=== PATIENT | female | born 1945 | race Caucasian/White ===

== ENCOUNTER 2018-05-20 07:43 | Day surgery (SDC) | payer MEDICARE, OTHER ==
[2018-05-20] MEDS: NS 1,000 ML IV (08:00)
[2018-05-20] MEDS ORDERED: PROPOFOL 200 MG/20 ML VIAL As Ordered ×2 (08:10)
== END 2018-05-20 09:54 | disposition home or self-care (01) ==
LOC: M OPP 07:43
DX: Z12.11 Encounter for screening for malignant neoplasm of colon (principal); K57.32 Diverticulitis of large intestine without perforation or abscess without bleeding; K57.30 Diverticulosis of large intestine without perforation or abscess without bleeding; R00.8 Other abnormalities of heart beat; I10 Essential (primary) hypertension; E78.5 Hyperlipidemia, unspecified; E11.9 Type 2 diabetes mellitus without complications; M19.90 Unspecified osteoarthritis, unspecified site; M54.5 Low back pain; G43.909 Migraine, unspecified, not intractable, without status migrainosus; Z78.0 Asymptomatic menopausal state; Z87.891 Personal history of nicotine dependence; Z88.8 Allergy status to other drugs, medicaments and biological substances; Z88.1 Allergy status to other antibiotic agents; Z91.048 Other nonmedicinal substance allergy status; Z88.5 Allergy status to narcotic agent; Z79.82 Long term (current) use of aspirin; Z79.84 Long term (current) use of oral hypoglycemic drugs; Z79.899 Other long term (current) drug therapy
CPT/HCPCS: G0121

== ENCOUNTER → 2019-05-21 | Outpatient (REF) | payer MEDICARE, OTHER ==
[~2019-05-21] MED LIST: ASPI81TA26 PO; ATEN50TA2; BLAC540C2 PO; JANU100T; LIVA4TAB; METF500T13; SUMA100T2; TYLE500T78 PO; VITA100067 PO; [UNRECOGNIZED DRUG - CODE] PO
== END ==
LOC: M LAB REF 16:34
PROVIDERS: ATTEND Physician Assistant
DX: K57.32 Diverticulitis of large intestine without perforation or abscess without bleeding (principal)

== ENCOUNTER → 2019-11-07 | Outpatient (CLI) | payer MEDICARE, OTHER ==
--- NOTE | 2019-11-08 09:41 | REP ---
CHEST PA AND LATERAL: 11/07/2019. CLINICAL HISTORY: Dyspnea, cough for a week. FINDINGS: No prior study. Lungs are well inflated. Heart is enlarged. Some mild left ventricular configuration. There is no vascular redistribution or pulmonary edema. No dense consolidation, atelectasis, or mass. No effusion or pleural thickening. The aorta is normal. Airway intact. Bony thorax without focal lesion. No free air. IMPRESSION: 1. Some mild cardiomegaly with left atrial and ventricular enlargement, but no vascular redistribution, pulmonary edema, infiltrate, effusion, or other acute finding. Electronically Signed by Vadim Causey MD 11/08/2019 10:20 A
== END ==
LOC: M WUC 14:53
PROVIDERS: ATTEND Physician Assistant
DX: R06.02 Shortness of breath (principal); I51.7 Cardiomegaly

== ENCOUNTER 2021-06-19 11:15 | Emergency (ER) | payer MEDICARE, OTHER ==
[~2021-06-19] VITALS: Ht 154.9 cm; Wt 71.2 kg
[2021-06-19] MEDS ORDERED: MELA10CA6 PO (11:28)
[2021-06-19] MEDS ORDERED: LISI2.5T2 (11:28)
[2021-06-19] MEDS ORDERED: CITA20TA6 (11:28)
[2021-06-19] MEDS ORDERED: NAPR-849 PO (11:28)
[2021-06-19 12:16] LABS: BASO % 0.5 % (0.0-1.0); EOS # 0.1 10^3/uL (0.0-0.5); EOS % 0.7 % (0.0-3.0); HEMATOCRIT 41.8 % (36.0-47.0); HEMOGLOBIN 13.7 g/dl (12.0-15.5); LYMPH # 1.6 10^3/uL (1.5-5.0); MEAN CORPUSCULAR HEMOGLOBIN 28.8 pg (27.0-33.0); MEAN CORPUSCULAR HGB CONC 32.8 g/dl (32.0-36.5); MONO # 0.5 10^3/uL (0.0-0.8); MONO % 5.1 % (2.0-8.0); NEUTROPHILS # 6.7 10^3/uL (1.5-8.5); NEUTROPHILS % 75.5 % (36.0-66.0); PLATELET COUNT, AUTOMATED 275 10^3/uL (150-450); RED BLOOD COUNT 4.75 10^6/uL (4.00-5.40); WHITE BLOOD COUNT 8.9 10^3/uL (4.0-10.0)
[2021-06-19 12:45] LABS: ALBUMIN 4.3 GM/DL (3.2-5.2); ALT/SGPT 31 U/L (12-78); BILIRUBIN,DIRECT < 0.1 MG/DL (0.0-0.2); BILIRUBIN,TOTAL 0.4 MG/DL (0.2-1.0); BLOOD UREA NITROGEN 22 MG/DL (7-18); CALCIUM LEVEL 9.8 MG/DL (8.8-10.2); CARBON DIOXIDE LEVEL 27 MEQ/L (21-32); CHLORIDE LEVEL 106 MEQ/L (98-107); CK-MB VALUE MASS 1.1 NG/ML (<3.6); CPK CREATINE PHOSPHOKINASE 80 U/L (26-192); CREATININE FOR GFR 0.92 MG/DL (0.55-1.30); GLOMERULAR FILTRATION RATE > 60.0 (>39); GLUCOSE, FASTING 119 MG/DL (70-100); LIPASE 268 U/L (73-393); MB/CK RELATIVE INDEX 1.38 (< OR =4); POTASSIUM SERUM 4.6 MEQ/L (3.5-5.1); SODIUM LEVEL 139 MEQ/L (136-145); TROPONIN I < 0.02 NG/ML (< 0.10)
--- NOTE | 2021-06-19 13:44 | REP ---
INDICATION: UPPER ABDOMINAL PAIN. COMPARISON: Biliary scan with ejection fraction 10/10/2009 TECHNIQUE: Standard right upper quadrant sonography with color imaging FINDINGS: Liver is homogeneous in echotexture without focal hepatic mass intrahepatic biliary dilatation nor adjacent ascites. There is a transverse mucosal fold within the gallbladder near its neck. No evidence of stone, sludge or pericholecystic fluid. No wall thickening. Common duct is 3 mm. There is a 5 x 4 x 3 mm anechoic focus in the body of the pancreas without internal echoes or color flow and suggesting a small cyst. No ductal dilatation, echogenic foci to suggest calcification or mass. The right kidney is 10.3 by 3.8 by 5 cm. There is no hydronephrosis. There is 1.6 x 1 cm cyst interpolar region. IMPRESSION: 1. Transverse mucosal fold in the gallbladder with no stones, sludge or wall thickening. Liver unremarkable without biliary dilatation or adjacent ascites. 2. Common duct 3 mm without dilatation or stone. 3. Pancreas shows anechoic 5 x 4 x 3 mm focus in the body. This may be followed up and assessed with the CT scheduled later today. Appearance is cystic without abnormal enhancement or calcification. 4. Simple cyst right kidney. No other finding. <Electronically signed by Vadim Causey > 06/19/21 [id number]
[2021-06-19] MEDS ORDERED: ISOVUE-370 76% 100ML VIAL As Ordered ONE (13:50)
[2021-06-19] MEDS ORDERED: GI COCKTAIL 50ML BTL(HYOSCYAMINE/MAALOX/LIDOCAINE VISCOUS)(1:3:1) PO ONE (14:40)
--- NOTE | 2021-06-19 14:49 | REP ---
INDICATION: intermittent abdominal pain; ?mesenteric ischemia COMPARISON: None. TECHNIQUE: CT angiogram of the abdomen and pelvis was performed with intravenous administration of 100 cc of Isovue 370, without oral contrast. 3D MIP reconstruction images performed. FINDINGS: Abdominal aorta: No aneurysm or dissection. Mild calcific plaque is seen at the origin of the celiac artery. 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 The superior mesenteric and inferior mesenteric arteries are widely patent. Mild scattered atherosclerotic plaquing is seen of the more distal abdominal aorta. The renal arteries demonstrate no stenosis. Lung bases: Unremarkable. Liver: Normal Gallbladder: Unremarkable. Spleen: Calcified granulomas are seen in the spleen. Adrenals: Normal. Pancreas: Normal. Kidneys: There is a cystic structure along the anterior mid right kidney 1.2 cm in diameter. Small and large bowel: There is diffuse colonic diverticulosis without evidence of acute diverticulitis. Free fluid: None. Adenopathy: None. Appendix: Not inflamed. Pelvis: No mass. Osseous structures: There are degenerative changes of the spine without compression deformity. 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 I suspect some degree of compression of this portion of the celiac artery by the median arcuate ligament. No significant stenosis of superior mesenteric or inferior mesenteric arteries. <Electronically signed by Augie Ramirez > 06/19/21 [id number]
[2021-06-19 16:17] VITALS: BP 158/71
--- NOTE | 2021-06-19 22:00 | ECGEPIP ---
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
--- NOTE | 2021-06-20 11:24 | ED PDOC ---
Post-Departure Follow-Up dr purvis, real, and hawa fong faxed formal report of cta abdomen for f u. Ghazala Kevin MD Jun 20, 2021 11:23
== END 2021-06-19 16:19 | disposition home or self-care (01) ==
LOC: M ED 11:15
DX: I77.4 Celiac artery compression syndrome (principal); K80.50 Calculus of bile duct without cholangitis or cholecystitis without obstruction; R00.1 Bradycardia, unspecified; R93.3 Abnormal findings on diagnostic imaging of other parts of digestive tract; N28.1 Cyst of kidney, acquired; E11.9 Type 2 diabetes mellitus without complications; I10 Essential (primary) hypertension; F41.9 Anxiety disorder, unspecified; Z98.61 Coronary angioplasty status; Z87.891 Personal history of nicotine dependence; Z79.84 Long term (current) use of oral hypoglycemic drugs; Z79.82 Long term (current) use of aspirin; Z79.899 Other long term (current) drug therapy; Z91.89 Other specified personal risk factors, not elsewhere classified; Z88.5 Allergy status to narcotic agent; Z88.8 Allergy status to other drugs, medicaments and biological substances
CPT/HCPCS: 74174; 76705; 80048; 80076; 82550; 82553; 83690; 84484; 85025; 93005; 99284; Q9967

== ENCOUNTER → 2021-06-23 | Outpatient (CLI) | payer MEDICARE, OTHER ==
[~2021-06-23] MED LIST changes: +CITA20TA6; +LISI2.5T2; +MELA10CA6 PO; +NAPR-849 PO
--- NOTE | 2021-06-23 11:04 | REP ---
INDICATION: BILIARY COLIC. COMPARISON: Comparison study is from October 10, 2009.. TECHNIQUE/RADIOTRACER AND DOSE: 6.5 mCi of Technetium-99m mebrofenin was injected and sequential anterior images are acquired. 65 minutes after the mebrofenin injection, the patient consumed 8 ounces Ensure and an additional 60 minutes of imaging was acquired. Regions of interest are plotted around the gallbladder. FINDINGS: The initial hepatocellular parenchymal uptake phase is normal and homogeneous. Intra- and extra-hepatic bile ducts are labeled by the 10-minute image. The gallbladder is first labeled on the 15-minute image. There is normal washout from the liver parenchyma into the gallbladder and small intestine on subsequent images. The gallbladder ejection fraction is 72%. Values greater than 35% are considered normal with this technique. IMPRESSION: Normal hepatobiliary scan and normal gallbladder ejection fraction. <Electronically signed by Dereje Worley > 06/23/21 [id number]
== END ==
LOC: M RAD 08:22
PROVIDERS: ATTEND Emergency Medicine
DX: K80.50 Calculus of bile duct without cholangitis or cholecystitis without obstruction (principal)
CPT/HCPCS: 78227; A9537

== ENCOUNTER → 2024-09-18 | Outpatient (CLI) | payer MEDICARE ==
[~2024-09-18] MED LIST changes: +ISOVUE-300 61% 100ML VIAL As Ordered ONE; +LIDOCAINE 1% MDV 20ML VIAL As Ordered ONE; -LISI2.5T2; +LISI2.5T9; +methylPREDNISolone SUSP 40MG/ML 1ML VIAL (DEPO MEDROL) As Ordered ONE
== END ==
LOC: M RAD 13:03
PROVIDERS: ATTEND Physician Assistant
DX: M16.11 Unilateral primary osteoarthritis, right hip (principal)
CPT/HCPCS: 20610; 77002; J1010; Q9967